=== PATIENT | male | born 1930 | race Caucasian/White ===

== ENCOUNTER 2017-07-25 07:07 | Day surgery (SDC) | payer MEDICARE ==
[2017-07-22 15:56] VITALS: BMI 19.1
[2017-07-25] MEDS ORDERED: CEFAZOLIN/Water 2 GM/20 ML SYRINGE ONE (07:43)
[2017-07-25 08:33] LABS: Anion Gap 14 mmol/L (10-20); BUN (Urea Nitrogen) 19 mg/dL (8.4-25.7); Calc. Creatinine Clearance 53 mL/min (70-130); Calcium 9.1 mg/dL (7.8-10.44); Carbon Dioxide 28 mmol/L (23-31); Chloride 101 mmol/L (98-107); Estimated GFR-MDRD 88
[2017-07-25] MEDS ORDERED: Bacitracin Zinc Ointment 30 gm TUBE ONE (08:48)
[2017-07-25] MEDS ORDERED: Fentanyl 100 MCG/2 ML VIAL ONE (08:56)
[2017-07-25] MEDS ORDERED: Bupivacaine/Epinephrine 0.25% 30 ML VIAL ONE (08:59)
[2017-07-25] MEDS ORDERED: Dexamethasone 20 MG/5 ML VIAL ONE ×2 (09:08)
[2017-07-25] MEDS ORDERED: ePHEDrine/0.9% NaCl/PF SYRINGE 50 mg/10 ml ONE ×2 (09:08)
[2017-07-25] MEDS ORDERED: Propofol 200 MG/20 ML VIAL ONE ×2 (09:08)
[2017-07-25] MEDS ORDERED: Ondansetron HCl/PF 4 MG/2 ML Vial ONE ×2 (09:08)
[2017-07-25] MEDS ORDERED: Lidocaine 1% w/Epinephrine 1:200K 30 ML VIAL ONE (11:08)
--- NOTE | 2017-07-25 12:18 | OP ---
DATE OF PROCEDURE: 07/25/2017 SURGEON: Lance Feliciano M.D. 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 PROCEDURE: 1. Wide excision skin cancer of scalp (4.8 cm including adequate margins). 2. Scalp rotation flap (10 x 10 cm, 100 cm2 including donor and recipient site). [id number], [id number] x2. PROCEDURE: Following induction of adequate anesthesia, the patient was prepped and draped in the [facility] sterile fashion in the supine position. The patient had 2 adjacent fungating lesions of his sca lp. These were excised en bloc. Frozen section analysis came back as margins clear. The defect wa s too large to close primarily. The patient has a history of scalp surgery in the past and his scal p was quite tight. A left laterally based scalp flap was chosen. A curvilinear incision was made with a back cut. The flap was elevated in the deep plane and then rotated into place and secured with 2-0 PDS sutures an d fátima. Prior to closure the wounds were reinspected for meticulous hemostasis and copiously irr igated. The drain was placed underneath the scalp flap. The patient tolerated the procedure well.
== END 2017-07-25 16:15 | disposition home or self-care (01) ==
LOC: SDC 07:07
PROVIDERS: ATTEND Plastic Surgery
PROC: 0HX0XZZ Transfer Scalp Skin, External Approach (ICD-10-PCS; principal; 2017-07-25)
PROC: 0HB0XZZ Excision of Scalp Skin, External Approach (ICD-10-PCS; 2017-07-25)
DX: C44.42 Squamous cell carcinoma of skin of scalp and neck (principal); I50.9 Heart failure, unspecified; F17.210 Nicotine dependence, cigarettes, uncomplicated; Z85.46 Personal history of malignant neoplasm of prostate
CPT/HCPCS: 80048; 88305; 88331; 88332; J1100; J2405; J2704; J3010